=== PATIENT | male | born 1980 | race Caucasian/White ===

== ENCOUNTER 2022-10-26 07:55 | Emergency (ER) | payer OTHER ==
[2022-10-26] MEDS ORDERED: Ondansetron 4 MG Tab.DIS PO ONE (08:37)
[2022-10-26] MEDS ORDERED: Acetaminophen 500 MG Tab PO ONE (08:39)
[2022-10-26] MEDS ORDERED: Lidocaine 1% with EPINEPHrine 1:100,000 20 ML MDV INJECT ONE (08:42)
[2022-10-26] MEDS ORDERED: HYDROmorphone 2 MG/ML Syringe IM ONE (09:02)
[2022-10-26] MEDS ORDERED: HYDROmorphone 2 MG/ML Syringe ONE (09:04)
[2022-10-26] MEDS: HYDROmorphone 2 MG/ML Syringe IVPUSH ONE ×2 (09:06→09:12)
== END 2022-10-26 09:52 | disposition home or self-care (01) ==
LOC: LB.ED 07:55
DX: S01.511A Laceration without foreign body of lip, initial encounter (principal); G44.311 Acute post-traumatic headache, intractable; F17.210 Nicotine dependence, cigarettes, uncomplicated; Z79.01 Long term (current) use of anticoagulants; Y04.0XXA Assault by unarmed brawl or fight, initial encounter
CPT/HCPCS: 12011; 70450; 96372; 99283; A9270; J1170; Q0162